=== PATIENT | female | born 1950 | race African-American/Black ===

== ENCOUNTER 2022-06-09 03:23 | Emergency (ER) | payer MEDICARE, OTHER, SELFPAY ==
--- NOTE | ~2022-06-09 | CT_ITS ---
EXAMINATION: CT HEAD WITHOUT CONTRAST CLINICAL INFORMATION: Status post fall COMPARISON: None TECHNIQUE: Contiguous axial imaging was performed from the skull base to vertex without intravenous administration of contrast. This CT examination was performed using dose optimization techniques as appropriate, variously including the following: *Automated exposure control *Adjustment of mA and/or kV according to patient size (this includes techniques or standardized protocols for targeted exams where dose is matched to indication/reason for exam; i.e. extremities or head) *Use of iterative reconstruction technique DLP: 1306 mGy-cm FINDINGS: There is no evidence of acute intracranial hemorrhage or territorial infarction. Chronic white matter small vessel ischemic changes. Mild cerebral atrophy. No abnormal mass effect or midline shift is seen. Hernandez to white matter differentiation is well preserved. No extra-axial fluid collections are identified. The ventricles are normal in size. There is no abnormal attenuation within the brain parenchyma. The osseous structures and soft tissues are normal. The mastoid air cells and visualized portions of the paranasal sinuses are well aerated. CT/CT cervical spine wo IV con IMPRESSION: 1. No acute intracranial pathology. 2. Chronic white matter small vessel ischemic changes. EXAMINATION: Noncontrast CT scan of the cervical spine. INDICATION: Status post fall COMPARISON: None. TECHNIQUE: Helical, multidetector axial images were obtained from the occiput to the upper thorax. Coronal and sagittal reformats of the cervical spine were provided for interpretation. DLP: 1306 mGy-cm FINDINGS: No acute fractures or dislocations of the cervical spine are seen. Moderate to severe multilevel degenerative changes with disc space narrowing, endplate sclerosis, anterior bridging osteophyte formation, and facet arthropathy. Anatomic alignment and positioning of the vertebral bodies and posterior elements is noted. The atlantoaxial joint and craniovertebral articulations are normal without evidence of subluxation. There is no prevertebral soft tissue swelling. Nodular enlargement of the right thyroid lobe. Visualized portions of the lung sheehan are unremarkable. IMPRESSION: 1. No acute visible fracture or dislocation. 2. Moderate to severe multilevel degenerative changes. 3. Nodular enlargement of the right thyroid lobe. This can be better evaluated with thyroid ultrasound if clinically warranted.
[2022-06-09 03:33] VITALS: BP 109/64; BP 110/70; PULSE 72; PULSE 83; RESP 12; TEMP 36.7; O2SAT 97; O2SAT 99; BMI 19.8
--- NOTE | 2022-06-09 03:46 | PC.NURSE ---
Pt arousable to verbal stimuli, not oriented. Breaths are even and unlabored. O2 sat 98%. Heart sounds are regular. HR 84. Abd is soft and non tender. No swelling in lower extremities. Skin is warm and dry. Appropriate for skin tone. Presents via EMS from [facility] with C-collar in place due to an unwitnessed fall.
[2022-06-09 06:28] VITALS: BP 111/54; PULSE 71; RESP 18; O2SAT 97
--- NOTE | 2022-06-09 06:38 | PC.NURSE ---
Pt sleeping. Breaths are even and unlabored with equal chest rises. Will continue to monitor.
--- NOTE | 2022-06-09 07:29 | ECG_ITS ---
Test Reason : possible syncope Blood Pressure : / mmHG Vent. Rate : 082 BPM Atrial Rate : 082 BPM P-R Int : 146 ms QRS Dur : 074 ms QT Int : 372 ms P-R-T Axes : 077 038 044 degrees QTc Int : 434 ms Normal sinus rhythm Normal ECG No significant changes seen Referred By: Reji Jiang Electronically Signed By:CASEY CALVIN MD
--- NOTE | 2022-06-09 07:30 | ED.FALL ---
HPI - Fall General Chief Complaint: Fall Stated Complaint: fall Time Seen by Provider: 06/09/22 07:26 Source: EMS, RN notes reviewed and other ([facility] documentation) Mode of arrival: EMS Limitations: altered mental status History of Present Illness HPI Narrative: 72-year-old female presents to the emergency department today with a fall. Past medical history is unknown at the time of this dictation. The patient is noted to have come from [facility], and was found on the bathroom floor. This was an unwitnessed fall. There is unknown downtime. HPI, review of systems, and physical exam may be limited secondary to the patient's altered mental status MD complaint: fall Onset (ago): hour(s) Fall from: other (Unknown) Fall witnessed: no Place fall occurred: skilled nursing/SNF Loss of consciousness: unsure Prolonged down time: unclear Location of injury: face Related Data Allergies Allergy/AdvReac Type Severity Reaction Status Date / Time No Known Allergies Allergy Unknown Unverified 05/16/20 16:50 Review of Systems Review of Systems: Yes Unobtainable due to mental status Neurologic: Reports confusion Psychiatric: Psychiatric: Reports confusion [facility] Past Medical History Source: unable to obtain, old records reviewed and nursing notes reviewed Social History Social History Advance Directives: No Physical Exam Vital Signs: Vital Signs: Last Vital Signs Temp 98.1 F 06/09/22 03:33 Pulse 88 06/09/22 10:57 Resp 17 06/09/22 10:57 BP 144/73 H 06/09/22 10:57 Pulse Ox 99 06/09/22 10:57 O2 Del Method 06/09/22 10:57 BMI result Body Mass Index 19.8 Interpretation is normal Const: General: confusion and lethargic Nutritional Appearance: underweight Orientation/consciousness: No patient oriented x3, confusion and lethargic Limitations: altered mental status HEENT: Head: Yes normal to inspection and Yes No palpable skull fracture present Ears: hearing grossly normal bilaterally General nose exam: Normal external nose present Face and sinus: Yes abrasion and Yes erythema Face images: 1. Contusion noted 2. ecchymosis Mouth: mucous membranes dry Eyes: Sclerae: sclerae normal Corneas: corneas normal Pupils: not dilated Direct Ophthalmoscopy: normal light reflex Eyes/upper lids images: 1. Ecchymosis noted Neck: Other: Range of motion not tested at this time secondary to cervical immobilization Neck: Yes normal visual inspection and Yes trachea midline Chest: Chest palpation & inspection: normal inspection of the chest and no tenderness Resp: Effort & Inspection: normal respiratory effort and no audible wheezes Cardio: Rate: regular rate Rhythm: regular rhythm GI: Inspection: Yes normal to inspection Palpation (GI): nontender Back/Spine/Pelvis: Back: No erythema Cervical Spine: collar present Thoracic/Lumbar Spine: No thoracic spinal tenderness Pelvis: no pain with anterior-posterior compression and no pain with lateral compression Skin: General skin exam: no rashes or lesions noted and dry skin Neuro: General: No patient oriented x3, confusion and Unable to assess gait Gait exam (Neuro): Unable to assess gait Extrem: General: Yes normal to inspection and No edema Course Reevaluation(s) Reevaluation #1: Patient observed to be ambulatory in the emergency department with minimal assist. Patient is refusing to give a urine specimen, and when taken to the bathroom, missed the urine container which was placed in the toilet. At this point in time, there does not appear to be any additional testing required. The patient seems to be at her baseline and will be discharged back to her facility. Time: 15:11 MDM - Fall MDM Narrative Medical decision making narrative: 72-year-old female from skilled nursing who had an unwitnessed fall. Laboratory studies were reviewed. CT scan of the head and neck were reviewed as well, all results normal and/or negative. No evidence of intracranial injury. Patient does not recall exactly what happened, thinks she may have lost her balance. Will be discharging the patient back to the facility with head injury instructions as well as instructions for syncope. Additional history from EMS was reviewed as well as documentation from the facility. Differential Diagnosis Differential diagnosis: Likely concussion with loss of consciousness Medical Records Attestation: I reviewed the patient's medical records. (Information available from EMS and facility) Lab Data Attestation: I reviewed the patient's lab results. Lab results narrative: No significant acute findings on laboratory studies Result diagrams: 06/09/22 09:09 06/09/22 09:09 Labs: Lab Results 06/09/22 06/09/22 06/09/22 Range/Units 09:09 09:09 09:09 WBC 4.8 (4.8-10.8) X10*3/uL RBC 3.78 L (4.20-5.50) X10*6/uL Hgb 11.7 L (12.0-16.0) g/dl Hct 35.7 L (37.0-47.0) % MCV 94.4 (80.0-98.0) fL MCH 31.0 (27.0-33.0) pg MCHC 32.8 (31.0-35.0) g/dl RDW 14.3 (11.0-16.0) % Plt Count 127 L (160-400) X10*3/uL MPV 11.2 (9.4-12.3) fL Immature Gran % (Auto) 0.2 (0.0-0.4) % Neut % (Auto) 45.5 (45-73) % Lymph % (Auto) 44.7 H (20-40) % Pope % (Auto) 8.6 (2-11) % Eos % (Auto) 0.8 (0-4) % Baso % (Auto) 0.2 (0-2) % Lymph # (Auto) 2.1 (1.2-4.9) X10*3/uL Pope # (Auto) 0.4 (0.1-1.2) X10*3/uL Eos # (Auto) 0.0 (0.0-0.4) X10*3/uL Baso # (Auto) 0.0 (0.0-0.2) X10*3/uL Abs Immat Gran (auto) 0.01 (0.00-0.03) X10*3/uL Absolute Neuts (auto) 2.2 (2.0-8.3) x10*3/uL Absolute Nucleated RBC 0.000 (0.0-0.012) X10*3/uL Nucleated RBC % (auto) 0.0 (0.0-0.2) /100WBC Sodium 142 (135-145) mmol/L Potassium 4.1 (3.3-5.1) mmol/L Chloride 106 (96-108) mmol/L Carbon Dioxide 26 (22-29) mmol/L Anion Gap 14 (12-20) BUN 17 H (9-16) mg/dL Creatinine 0.73 (0.5-1.4) mg/dL Estim Creat Clear Calc 63.9 Estimated GFR > 60 Random Glucose 84 (60-115) mg/dL Calcium 9.2 (8.4-10.2) mg/dL Troponin I High Sens < 3.5 (<3.5-17.0) ng/L Imaging Data CT scan - head: Radiologist's impression: FINDINGS: There is no evidence of acute intracranial hemorrhage or territorial infarction. Chronic white matter small vessel ischemic changes. Mild cerebral atrophy. No abnormal mass effect or midline shift is seen. Hernandez to white matter differentiation is well preserved. No extra-axial fluid collections are identified. The ventricles are normal in size. There is no abnormal attenuation within the brain parenchyma. The osseous structures and soft tissues are normal. The mastoid air cells and visualized portions of the paranasal sinuses are well aerated. ? CT/CT head/brain wo IV con IMPRESSION: 1.? No acute intracranial pathology. 2.? Chronic white matter small vessel ischemic changes. ? ? EXAMINATION: Noncontrast CT scan of the cervical spine. ? INDICATION: Status post fall ? COMPARISON: None. ? TECHNIQUE:? Helical, multidetector axial images were obtained from the occiput to the upper thorax. Coronal and sagittal reformats of the cervical spine were provided for interpretation. ? DLP: 1306 mGy-cm ? FINDINGS: No acute fractures or dislocations of the cervical spine are seen. Moderate to severe multilevel degenerative changes with disc space narrowing, endplate sclerosis, anterior bridging osteophyte formation, and facet arthropathy. Anatomic alignment and positioning of the vertebral bodies and posterior elements is noted. The atlantoaxial joint and craniovertebral articulations are normal without evidence of subluxation. There is no prevertebral soft tissue swelling. ? Nodular enlargement of the right thyroid lobe. Visualized portions of the lung sheehan are unremarkable. ? IMPRESSION: 1.? No acute visible fracture or dislocation. 2.? Moderate to severe multilevel degenerative changes. 3.? Nodular enlargement of the right thyroid lobe. This can be better evaluated with thyroid ultrasound if clinically warranted. ECG Data Attestation: I personally reviewed and interpreted this ECG as follows: ECG interpretation date: 06/09/22 ECG interpretation time: 09:15 Prior ECG tracings: not available for review Interpretation: Normal sinus rhythm at 82. Normal QRS and MA interval. Normal QT. Normal axis. There are no old EKGs for comparison. Discharge Plan Discharge Clinical Impression: Concussion with loss of consciousness Qualifiers: Encounter type: initial encounter Qualified Code(s): S06.0X9A - Concussion with loss of consciousness of unspecified duration, initial encounter Fall Qualifiers: Encounter type: initial encounter Qualified Code(s): W19.XXXA - Unspecified fall, initial encounter Patient Disposition: Home, Self-Care Referrals: Gini Molina MD [Primary Care Provider] - 2 days
--- NOTE | 2022-06-09 07:53 | PC.NURSE ---
pt refused ekg to this tech @[id number]. RN aware. will try again in a few minutes.
[2022-06-09 08:03] VITALS: BP 127/53; RESP 15
--- NOTE | 2022-06-09 08:06 | PC.NURSE ---
This RN called [facility] to receive more information about the patient. Per [facility] staff, patient usually alert and oriented. The patient is currently not answering questions and refusing EKG and blood work from this RN and radiochemical technicianDeborah DE LA PAZ made aware of situation
[2022-06-09 09:15] LABS: MANUAL DIFF FLAG NO
[2022-06-09 09:21] LABS: Basophils Percent Auto 0.2 % (0-2); Eosinophils Percent Auto 0.8 % (0-4); Hematocrit 35.7 % (37.0-47.0); Hemoglobin 11.7 g/dl (12.0-16.0); Imm Gran Abs Auto 0.01 X10*3/uL (0.00-0.03); Imm Gran Pct Auto 0.2 % (0.0-0.4); Lymphocytes Absolute Auto 2.1 X10*3/uL (1.2-4.9); Lymphocytes Percent Auto 44.7 % (20-40); Mean Corpuscular HGB Conc 32.8 g/dl (31.0-35.0); Mean Corpuscular Volume 94.4 fL (80.0-98.0); Mean Platelet Volume 11.2 fL (9.4-12.3); Monocytes Absolute Auto 0.4 X10*3/uL (0.1-1.2); Monocytes Percent Auto 8.6 % (2-11); Neutrophils Absolute Auto 2.2 x10*3/uL (2.0-8.3); Neutrophils Percent Auto 45.5 % (45-73); Platelet Count 127 X10*3/uL (160-400); Red Blood Count 3.78 X10*6/uL (4.20-5.50); Red Cell Distribution Width 14.3 % (11.0-16.0); White Blood Count 4.8 X10*3/uL (4.8-10.8)
[2022-06-09 09:30] LABS: Anion Gap 14 (12-20); Blood Urea Nitrogen 17 mg/dL (9-16); Calcium 9.2 mg/dL (8.4-10.2); Carbon Dioxide 26 mmol/L (22-29); Chloride 106 mmol/L (96-108); Creatinine Clr Calc Pharmacy 63.9; Estimated Glomerular Filt Rate > 60; Glucose Random 84 mg/dL (60-115); Potassium 4.1 mmol/L (3.3-5.1); Sodium 142 mmol/L (135-145)
[2022-06-09 09:36] LABS: Troponin-I High Sensitivity < 3.5 ng/L (<3.5-17.0)
[2022-06-09 10:57] VITALS: BP 144/73; PULSE 88; RESP 17; O2SAT 99
--- NOTE | 2022-06-09 12:04 | PC.NURSE ---
Patient refused to give this RN a urine sample. made aware
--- NOTE | 2022-06-09 14:42 | PC.NURSE ---
patient refuse all care
--- NOTE | 2022-06-09 15:44 | PC.NURSE ---
approached by nurse to book a ride home for pt to go back to [facility]. Taryn was contacted. Taryn stated it will be at 7 if they cant pass off the call
--- NOTE | 2022-06-09 16:32 | PC.NURSE ---
Patient refusing vital signs from this RN
--- NOTE | 2022-06-09 18:07 | PC.NURSE ---
Discharge instructions given in nurse to nurse report with nurse Vazquez from [facility]
== END 2022-06-09 20:15 | disposition home or self-care (01) ==
PROVIDERS: Emergency Provider Emergency Medicine; PCP Internal Medicine
DX: S06.0X9A Concussion with loss of consciousness of unspecified duration, initial encounter (principal); R51.9 Headache, unspecified; R55 Syncope and collapse; M54.2 Cervicalgia; W18.30XA Fall on same level, unspecified, initial encounter; Y93.9 Activity, unspecified; Y92.9 Unspecified place or not applicable; Y99.9 Unspecified external cause status; Z79.899 Other long term (current) drug therapy
CPT/HCPCS: 36415; 70450; 72125; 80048; 84484; 85025; 93005; 99284